=== PATIENT | male | born 1980 | race Two or more races ===

== ENCOUNTER 2019-09-15 12:31 | Emergency (ER) | payer SELFPAY ==
[~2019-09-15] VITALS: Ht 180.3 cm; Wt 79.4 kg
[~2019-09-15 12:31] MED LIST: ALBU90OI INH; ALBU90OI6 INH; AZIT250 PO; BENZ100A PO; CEPH500 PO; CYCL10 PO; HYDACE5 PO; IBUP400 PO; IBUP800 PO; MONT10T PO; PRED20 PO; SERT100 PO; SULTRIDS PO; TRAM50 PO; Ultram50 MG PO; Zithromax250 MG PO
[2019-09-15 14:27] LABS: Adenovirus Not Detected (NOT DETECT); Coronavirus 229E Not Detected (NOT DETECT); Coronavirus HKU1 Not Detected (NOT DETECT); Coronavirus NL63 Not Detected (NOT DETECT); Coronavirus OC43 Not Detected (NOT DETECT); Human Metapneumovirus Not Detected (NOT DETECT); Human Rhinovirus/Enterovirus Not Detected (NOT DETECT); Influenza A Not Detected (NOT DETECT); Influenza A/2009-H1 Detected (NOT DETECT); Influenza A/H1 Not Detected (NOT DETECT); Influenza A/H3 Not Detected (NOT DETECT)
[2019-09-15 14:28] LABS: Bordetella pertussis Not Detected (NOT DETECT); Chlamydophila pneumoniae Not Detected (NOT DETECT); Influenza B Not Detected (NOT DETECT); Mycoplasma pneumoniae Not Detected (NOT DETECT); Parainfluenza Virus 1 Not Detected (NOT DETECT); Parainfluenza Virus 2 Not Detected (NOT DETECT); Parainfluenza Virus 3 Not Detected (NOT DETECT); Parainfluenza Virus 4 Not Detected (NOT DETECT); Respiratory Syncytial Virus Not Detected (NOT DETECT)
[2019-09-15] MEDS ORDERED: Tamiflu75 MG PO (15:46)
== END 2019-09-15 16:38 | disposition home or self-care (01) ==
LOC: ER 12:31
PROVIDERS: Physician Assistant
DX: J10.1 Influenza due to other identified influenza virus with other respiratory manifestations (principal); Z88.0 Allergy status to penicillin; Z88.6 Allergy status to analgesic agent
CPT/HCPCS: 0099U; 71046; 96374; 99283-25; J1885; J7030

== ENCOUNTER 2024-01-18 06:17 | Day surgery (SDC) | payer OTHER ==
[2024-01-18] VITALS (7 sets, daily range): BP systolic 120–135; BP diastolic 79–99
[~2024-01-18] VITALS: Ht 178 cm; Wt 97.6 kg
[~2024-01-18 06:17] MED LIST changes: +MECL25 PO; +ONDA4ODT MM; +Tamiflu75 MG PO
[2024-01-18] MEDS ORDERED: Lactated Ringer's 1,000 ML IV SCH (06:35)
[2024-01-18] MEDS ORDERED: DIPH25 PO (07:24)
[2024-01-18] MEDS ORDERED: Bupivacaine 0.5% HCl 5 MG/ML 30MLVIAL ONE (08:16)
[2024-01-18] MEDS ORDERED: CeFAZolin Sodium 2,000 MG in NS 100 ML IV SCH (08:20)
[2024-01-18] MEDS ORDERED: Midazolam HCl 1MG / ML 2ML Vial ONE (08:27)
[2024-01-18] MEDS ORDERED: FentaNYL Citrate 50 MCG/ML 2 ML Injection ONE (08:27)
[2024-01-18] MEDS ORDERED: propofoL 20 ML IV ONE (08:47)
--- NOTE | 2024-01-18 08:58 | NUR ---
01/18/24 0858 Debbie Velazquez SEE ANEST RECORD FOR BLOCK DONE ON OPERATIVE EXTREMITY BEFORE START OF THE PROCEDURE.
[2024-01-18] MEDS ORDERED: Ketorolac Tromethamine 30mg Vial ONE (09:26)
== END 2024-01-18 10:15 | disposition home or self-care (01) ==
LOC: ORSCMMR 06:17 → ORSCSDS 08:00 → ORSCMMR 08:00 → ORSCSDS 12:30
PROVIDERS: Orthopaedic Surgery
PROC: 01N50ZZ Release Median Nerve, Open Approach (ICD-10-PCS; principal; 2024-01-18 08:00)
DX: G56.03 Carpal tunnel syndrome, bilateral upper limbs (principal); Z87.891 Personal history of nicotine dependence
CPT/HCPCS: J0690; J1885; J2250; J2704; J3010; J7120

== ENCOUNTER 2024-08-06 21:21 | Emergency (ER) | payer OTHER ==
[~2024-08-06] VITALS: Ht 180.3 cm; Wt 95.2 kg
[~2024-08-06 21:21] MED LIST changes: +DIPH25 PO
[2024-08-06 21:49] LABS: BASOPHILS ABSOLUTE AUTO 0.06 K/mm3 (0.00-0.23); BASOPHILS PERCENT AUTO 1 % (0-2); EOSINOPHILS ABSOLUTE AUTO 0.24 K/mm3 (0.00-0.68); EOSINOPHILS PERCENT AUTO 3 % (0-6); Hematocrit 39.9 % (37.0-53.0); Hemoglobin 14.1 g/dL (13.5-17.5); IMMATURE GRAN ABSOLUTE AUTO 0.02 K/mm3 (0.00-0.10); IMMATURE GRAN PERCENT AUTO 0 % (0-1); LYMPHOCYTES ABSOLUTE AUTO 1.97 K/mm3 (0.84-5.20); LYMPHOCYTES PERCENT AUTO 25 % (21-46); MONOCYTES ABSOLUTE AUTO 0.78 K/mm3 (0.16-1.47); MONOCYTES PERCENT AUTO 10 % (4-13); Mean Corpuscular HGB Conc 35.3 g/dL (31.5-36.5); Mean Corpuscular Volume 91 fL (80-100); Mean Platelet Volume 9.1 fL (9.1-12.4); NEUTROPHILS ABSOLUTE AUTO 4.81 K/mm3 (1.96-9.15); NEUTROPHILS PERCENT AUTO 61 % (41-73); Platelet Count 287 K/mm3 (150-400); RDW Standard Deviation 42.8 fL (35.1-46.3); White Blood Cell Count 7.88 K/mm3 (4.00-11.30)
[2024-08-06 22:09] LABS: Albumin, Blood 3.9 g/dL (3.4-5.0); Albumin/Globulin Ratio 1.1 (0.8-1.8); Bilirubin, Total 0.5 mg/dL (0.1-1.0); Bun/Creatinine Ratio 12.7 (12.0-20.0); Calcium, Blood 8.8 mg/dL (8.5-10.1); Creatinine, Blood 1.02 mg/dL (0.60-1.20); Globulin, Blood 3.7 g/dL (2.2-4.0); Potassium, Blood 3.5 mmol/L (3.5-5.5); Total Protein, Blood 7.6 g/dL (6.4-8.2)
[2024-08-07 02:45] VITALS: BP 123/76
== END 2024-08-07 03:25 | disposition home or self-care (01) ==
LOC: ER 21:21
PROVIDERS: Physician Assistant
DX: R06.02 Shortness of breath (principal); Z88.0 Allergy status to penicillin; Z88.6 Allergy status to analgesic agent; Z79.899 Other long term (current) drug therapy; Z59.89 Other problems related to housing and economic circumstances
CPT/HCPCS: 71046; 80053; 84484; 85025; 93005; 93010; 99285-25